=== PATIENT | male | born 1955 | race Caucasian/White ===

== ENCOUNTER 2017-06-28 08:50 | Emergency (ER) | payer BC ==
[~2017-06-28] VITALS: Ht 182.9 cm; Wt 97.5 kg
[2017-06-28] MEDS ORDERED: BUPROPION XL300 MG ORAL (08:57)
[2017-06-28] MEDS ORDERED: LUNESTA2 MG ORAL (08:57)
[2017-06-28] MEDS ORDERED: CYMBALTA30 MG ORAL (08:57)
[2017-06-28] MEDS ORDERED: PRILOSEC2.5 MG ORAL (08:57)
[2017-06-28 09:02] VITALS: BP 157/94
[2017-06-28] MEDS ORDERED: Oxymetazoline 0.05% Na Spray 30ml NASAL ONE (09:30)
--- NOTE | 2017-06-28 09:38 | Emergency Room Report ---
History of Present Illness General Chief Complaint: Nosebleed Source: Patient, Medical Record Present Illness HPI 61-year-old male presents ED for evaluation. Patient presenting with nosebleed. Started this morning. Denies any trauma. Went to urgent care this morning but they told him to come to the emergency room. Patient denies taking blood thinners. Denies any pain. Denies any prior history of nosebleed. States his sinuses have felt very dry recently because of the cold weather. No other aggravating or relieving factors. Denies any other associated symptoms Allergies: Coded Allergies: No Known Allergies (Verified Allergy, Mild, 10/01/06) Patient History Past Medical History: none Past Surgical History: none Pertinent Family History: none Social History: Denies: smoking, alcohol use, drug use Immunizations: UTD Reviewed Nursing Documentation: PMH: Agreed, PSxH: Agreed Nursing Documentation-PMH Past Medical History: No History, Except For Review of Systems All Other Systems: negative except mentioned in HPI Physical Exam Vital Signs Date Time Temp Pulse Resp B/P (MAP) Pulse Ox O2 Delivery O2 Flow Rate FiO2 06/28/17 08:53 98.8 79 18 157/94 97 Room Air 98.8 Sp02 EP Interpretation: reviewed, normal General Appearance: no apparent distress, alert, GCS 15, non-toxic Head: normocephalic, atraumatic Eyes: bilateral eye normal inspection, bilateral eye PERRL ENT: hearing grossly normal, normal pharynx, no angioedema, normal voice, TMs + canals normal, other - bleeding from L nares Neck: normal inspection Respiratory: normal inspection, speaking full sentences Cardiovascular #1: normal inspection Gastrointestinal: normal inspection Rectal: deferred Genitourinary: no CVA tenderness Musculoskeletal: normal inspection Neurologic: alert, oriented x3, responsive, motor strength/tone normal, sensory intact, speech normal Psychiatric: judgement/insight normal, memory normal, mood/affect normal, no suicidal/homicidal ideation Skin: normal inspection Lymphatic: normal inspection Medical Decision Making Diagnostic Impression: Primary Impression: Epistaxis ER Course 61-year-old male presents to ED with epistaxis from left nostril. No trauma Differential-anterior epistaxis, posterior epistaxis, coagulopathy Patient placed on stretcher. After initial history, physical exam reveals male in no acute distress. Patient is actively bleeding from the left nostril. I am unable to identify whether the bleeding his anterior versus posterior as the bleeding is profuse. Patient is protecting her airway. Afrin initially applied but no resolution to the bleeding Rhino Rocket is placed and bleeding is now controlled I believe that patient can be safely discharged to home. Rhino Rocket will remain in place for 2 days. Patient will need antibiotics and can followup with him in 2 days. Diagnoses- epistxis Stable and discharged to home with prescription for Augmentin. Rhino Rocket in place. Followup with ENT. Return to ED if symptoms recur or worsen Last Vital Signs Date Time Temp Pulse Resp B/P (MAP) Pulse Ox O2 Delivery O2 Flow Rate FiO2 06/28/17 09:02 98.8 18 157/94 97 Room Air 98.8 06/28/17 08:53 79 Status: improved Disposition: HOME, SELF-CARE Condition: Stable Scripts Amoxicillin/Potassium Clav 875-125* (AUGMENTIN 875-125 TABLET*) 1 Each Tablet 1 TAB ORAL TWICE A DAY, #14 TAB Prov: ABHIJEET DO M.D. 06/28/17 Referrals: NOT CHOSEN HORACIO/,REFERRING (PCP) ABHIJEET DO M.D. Jun 28, 2017 09:38
[2017-06-28] MEDS ORDERED: AUGMENTIN 875-1 EAC1 ORAL (10:10)
[2017-06-28 10:49] VITALS: BP 147/85
== END 2017-06-28 10:51 | disposition home or self-care (01) ==
LOC: EMR 09:28
DX: R04.0 Epistaxis (principal)
CPT/HCPCS: 99283

== ENCOUNTER 2017-07-01 03:57 | Emergency (ER) | payer BC ==
[~2017-07-01] VITALS: Ht 182.9 cm; Wt 97.5 kg
[~2017-07-01 03:57] MED LIST: AUGMENTIN 875-1 EAC1 ORAL; BUPROPION XL300 MG ORAL; CYMBALTA30 MG ORAL; LUNESTA2 MG ORAL; PRILOSEC2.5 MG ORAL
[2017-07-01 04:19] VITALS: BP 155/100
[2017-07-01 04:48] VITALS: BP 148/95
--- NOTE | 2017-07-01 05:14 | Emergency Room Report ---
History of Present Illness General Chief Complaint: General Complaint Source: Patient Present Illness HPI 61-year-old male presents ED for evaluation. Patient is here to have Rhino Rocket removed. Was seen here a few days ago with epistaxis and a Rhino Rocket was placed in his left nostril. States he is here to have the Rhino Rocket removed. Could not make an appointment with his PMD. States that he believes the bleeding has since resolved. He feels okay. Denies the pain. Was prescribed antibiotics and is compliant with the medication. No other aggravating or relieving factors. Denies any other associated symptoms Allergies: Coded Allergies: No Known Allergies (Verified Allergy, Mild, 10/01/06) Patient History Past Medical History: none Past Surgical History: none Pertinent Family History: none Social History: Denies: smoking, alcohol use, drug use Immunizations: UTD Reviewed Nursing Documentation: PMH: Agreed, PSxH: Agreed Review of Systems All Other Systems: negative except mentioned in HPI Physical Exam Vital Signs Date Time Temp Pulse Resp B/P (MAP) Pulse Ox O2 Delivery O2 Flow Rate FiO2 07/01/17 04:12 97.6 87 16 155/100 95 Room Air 97.5 Sp02 EP Interpretation: reviewed, normal General Appearance: no apparent distress, alert, GCS 15, non-toxic Head: normocephalic, atraumatic Eyes: bilateral eye normal inspection, bilateral eye PERRL ENT: hearing grossly normal, normal pharynx, no angioedema, normal voice Neck: full range of motion, supple/symm/no masses Respiratory: chest non-tender, lungs clear, normal breath sounds, speaking full sentences Cardiovascular #1: regular rate, rhythm, no edema Cardiovascular #2: 2+ carotid (R), 2+ carotid (L), 2+ radial (R), 2+ radial (L) , 2+ dorsalis pedis (R), 2+ dorsalis pedis (L) Gastrointestinal: normal bowel sounds, non tender, soft, non-distended, no guarding, no rebound Rectal: deferred Genitourinary: normal inspection, no CVA tenderness Musculoskeletal: back normal, gait/station normal, normal range of motion, non- tender Neurologic: alert, oriented x3, responsive, motor strength/tone normal, sensory intact, speech normal Psychiatric: judgement/insight normal, memory normal, mood/affect normal, no suicidal/homicidal ideation Reflexes: 3+ bicep (R), 3+ bicep (L), 3+ tricep (R), 3+ tricep (L), 3+ knee (R) , 3+ knee (L) Skin: normal color, no rash, warm/dry, well hydrated Lymphatic: no adenopathy Medical Decision Making Diagnostic Impression: Primary Impression: Encounter for removal of nasal packing ER Course Hospital Course 61-year-old male presents ED for removal of Rhino Rocket Clinical course Patient placed on stretcher. Balloon is deflated the Rhino Rocket removed. The left naris appears clean and dry with no active bleeding and no signs of blood Discussed findings with the patient. Recommended close follow-up with PMD. No further intervention at this time Given referral to ENT Diagnosis - encounter for removal of nasal packing Stable and discharged to home. continue abx as directed. Followup with PMD/ENT. Return to ED if any signs of infection develop Last Vital Signs Date Time Temp Pulse Resp B/P (MAP) Pulse Ox O2 Delivery O2 Flow Rate FiO2 07/01/17 04:48 97.9 87 17 148/95 95 Room Air Status: improved Disposition: HOME, SELF-CARE Condition: Stable Referrals: KATY VAZQUEZ/,REFERRING (PCP) Patient Instructions: Nosebleed, [id number] ABHIJEET DO M.D. Jul 01, 2017 05:14
== END 2017-07-01 04:40 | disposition home or self-care (01) ==
LOC: EMR 04:32
DX: Z48.00 Encounter for change or removal of nonsurgical wound dressing (principal)
CPT/HCPCS: 99281